=== PATIENT | male | born 1990 | race Two or more races ===

== ENCOUNTER 2024-08-16 10:39 | Inpatient (IN) | payer MEDICAID, OTHER ==
[~2024-08-16] VITALS: Ht 182.9 cm; Wt 143.3 kg
[2024-08-16] MEDS: cloNIDine HCL 0.1 MG TAB PO ONE (11:19)
[2024-08-16 11:32] LABS: Urine Bacteria None Seen /hpf (None Seen)
[2024-08-16 11:35] LABS: Basophils # (auto) 0.1 10 ^3/uL (0-0.2); Basophils % (auto) 0.8 % (0.0-2.0); Eosinophils # (auto) 0.1 10 ^3/uL (0-0.8); Eosinophils % (auto) 1.5 % (0.0-7.0); Hemoglobin 16.7 g/dL (13.5-17.5); Lymphocytes # (auto) 1.5 10 ^3/uL (0.4-5.4); Lymphocytes % (auto) 16.9 % (10.0-50.0); Mean Corpuscular Hemoglobin 29.9 pg (28.0-32.0); Mean Corpuscular Hgb Conc. 34.1 g/dL (32.0-36.0); Mean Corpuscular Volume 87.9 fL (80.0-100.0); Monocytes # (auto) 0.5 10 ^3/uL (0-1.3); Monocytes % (auto) 5.9 % (0.0-12.0); Neutrophils # (auto) 6.7 10 ^3/uL (1.6-8.6); Neutrophils % (auto) 74.9 % (37.0-80.0); Platelet Count (auto) 210 10^3/uL (140-450); Red Blood Cells 5.58 10^6/uL (4.5-5.90); Red Cell Distribution Width 14.4 % (11.8-14.3)
[2024-08-16 11:44] LABS: Urine Blood Negative /uL (Negative); Urine Clarity Clear (Clear); Urine Color Light-Yellow (Yellow); Urine Protein, UAD 2+ (Negative); Urine Specific Gravity 1.031 (1.001-1.035); Urine Urobilinogen Normal (Negative); Urine WBC <1 /hpf (0 - 3); Urine pH 6.5 (5.0-9.0)
[2024-08-16 11:45] LABS: Alanine Aminotransferase 111 U/L (7-40); Albumin 4.2 g/dL (3.2-4.8); Alkaline Phosphatase 143 U/L (46-116); Anion Gap 6 (5-15); Aspartate Aminotransferase 68 U/L (13-40); BUN/Creatinine Ratio 6.2 (10.0-20.0); Blood Urea Nitrogen 7 mg/dL (9-23); Calcium 9.4 mg/dL (8.7-10.4); Carbon Dioxide 27 mmol/L (20-30); Chloride 98 mmol/L (98-107); Lipase 77 U/L (12-53); Potassium 4.2 mmol/L (3.5-5.1); Sodium 131 mmol/L (136-145)
[2024-08-16 11:46] LABS: Bilirubin, Total 0.6 mg/dL (0.2-1.0)
[2024-08-16 11:47] LABS: Glucose 556 mg/dL (74-106)
[2024-08-16] MEDS: SODIUM CHLORIDE 0.9% 1,000 ML IV ONE (13:30)
[2024-08-16] MEDS: InsuLIN REG 1unit/0.01ml Soln (100units/ml) IV ONE (14:09)
[2024-08-16] MEDS ORDERED: ONDANSETRON HCL 4 MG/2 ML VIAL IV PRN (16:30)
[2024-08-16] MEDS: LISINOPRIL 20 MG TAB PO ONE (16:30)
[2024-08-16] MEDS ORDERED: MORPHINE SULFATE INJ 2 MG/ml SYRG IV PRN (16:30)
[2024-08-16] MEDS ORDERED: DOCUSATE SOD 100 MG CAP PO PRN (16:30)
[2024-08-16] MEDS ORDERED: hydrALAZINE HCL 20 MG/ML VL IV PRN (16:30)
[2024-08-16] MEDS: SODIUM CHLORIDE 0.9% 2,000 ML IV ONE (16:30)
[2024-08-16] MEDS: hydroCHLOROthiazide 25 MG TAB PO ONE (16:30)
[2024-08-16] MEDS: SODIUM CHLORIDE 0.9% 1,000 ML IV SCH (16:30)
[2024-08-16] MEDS ORDERED: DEXTROSE (50%) 50ML SYRG IV PRN (16:30)
[2024-08-16] MEDS ORDERED: NITROGLYCERIN 0.4 MG SL TAB SL PRN (16:30)
[2024-08-16] MEDS: ACCU-CHEK COMFORT CURVE STRIP VI SCH (20:00)
[2024-08-16] MEDS: PANTOPRAZOLE 40 MG/10 ML VIAL INJ IV ONE (20:00)
[2024-08-16] MEDS: InsuLIN REG 1unit/0.01ml Soln (100units/ml) SC SCH (20:00)
[2024-08-16 20:30] VITALS: PULSE 87; RESP 17; O2SAT 94
[2024-08-16 22:03] VITALS: BP 122/68; PULSE 89; RESP 19; TEMP 98.2; O2SAT 94
[2024-08-16 22:18] VITALS: BP 122/68; PULSE 89; RESP 20; TEMP 98.2; O2SAT 94
[2024-08-17] VITALS (8 sets, daily range): BP systolic 126–143; BP diastolic 74–81; PULSE 84–89; RESP 16–19; TEMP 97.4–97.9; O2SAT 92–95
[2024-08-17] MEDS: InsuLIN REG 1unit/0.01ml Soln (100units/ml) SC ONE (00:44)
[2024-08-17] MEDS: InsuLIN REG 1unit/0.01ml Soln (100units/ml) SC SCH (03:19)
[2024-08-17 04:20] LABS: Urine Bacteria FEW /hpf (None Seen); Urine Blood TRACE /uL (Negative); Urine Clarity Clear (Clear); Urine Color Yellow (Yellow); Urine Protein, UAD 2+ (Negative); Urine Specific Gravity 1.035 (1.001-1.035); Urine Urobilinogen Normal (Negative); Urine WBC 21 /hpf (0 - 3)
[2024-08-17 04:31] LABS: Amphetamine Screen, Urine Neg (NEGATIVE); Barbiturate Scree,Urine Neg (NEGATIVE); Benzodiazephine Screen, Urine Neg (NEGATIVE); Cannabinoid Screen, Urine Neg (NEGATIVE); Cocaine Screen, Urine Neg (NEGATIVE); Opiate Scree,Urine Neg (NEGATIVE); Phencyclidine Screen, Urine Neg (NEGATIVE)
[2024-08-17] MEDS: PANTOPRAZOLE 40 MG/10 ML VIAL INJ IV ONE (08:39)
[2024-08-17] MEDS: InsuLIN REG 1unit/0.01ml Soln (100units/ml) ONE (08:39)
[2024-08-17 10:23] LABS: Hepatitis B Surface Antigen Negative (Negative)
[2024-08-17 10:35] LABS: Hepatitis C Antibody Negative (Negative)
[2024-08-17] MEDS: hydroCHLOROthiazide 25 MG TAB PO SCH (10:38)
[2024-08-17] MEDS: PANTOPRAZOLE 40 MG/10 ML VIAL INJ IV SCH (10:39)
[2024-08-17] MEDS: LISINOPRIL 20 MG TAB PO SCH (10:39)
[2024-08-17] MEDS: metFORMIN HYDROCHLORIDE 500 MG TAB PO ONE (17:05)
== END 2024-08-17 22:45 | disposition left against medical advice (07) | DRG 420 ==
LOC: ER 10:39 → OVERFLOW 16:21 → ER 16:22 → WEST WING 22:03
PROVIDERS: ADMIT Nurse Practitioner Family; ATTEND Nurse Practitioner Acute Care
DX: E11.65 Type 2 diabetes mellitus with hyperglycemia (principal); E11.43 Type 2 diabetes mellitus with diabetic autonomic (poly)neuropathy; K31.84 Gastroparesis; K76.0 Fatty (change of) liver, not elsewhere classified; E66.01 Morbid (severe) obesity due to excess calories; R74.01 Elevation of levels of liver transaminase levels; I10 Essential (primary) hypertension; F17.200 Nicotine dependence, unspecified, uncomplicated; Z53.29 Procedure and treatment not carried out because of patient's decision for other reasons; Z68.41 Body mass index [BMI] 40.0-44.9, adult
CPT/HCPCS: 36415; 74176; 76705; 80053; 80307; 80320; 81001; 82010; 82962; 83036; 83690; 85025; 86803; 87340; 96374; 99291; G0378; J1815; J2470